=== PATIENT | female | born 2000 | race African-American/Black ===

== ENCOUNTER 2021-03-05 01:34 | Emergency (ER) | payer OTHER ==
[~2021-03-05] VITALS: Ht 160 cm; Wt 69.4 kg
[2021-03-05] MEDS ORDERED: TETANUS-DIPTH-ACEL PERTUSSIS 0.5ML SYR Tdap IM ONE (07:45)
[2021-03-05] MEDS ORDERED: METOCLOPRAMIDE HCL 5MG/ml INJ 2ml VIAL IV ONE (07:45)
[2021-03-05] MEDS ORDERED: KETOROLAC TROMETH 30 MG/ML 1ML VIAL IV ONE (07:45)
[2021-03-05 10:00] VITALS: BP 111/51
== END 2021-03-05 10:57 | disposition home or self-care (01) ==
LOC: ER 01:34
DX: S92.901A Unspecified fracture of right foot, initial encounter for closed fracture (principal); S99.911A Unspecified injury of right ankle, initial encounter; X58.XXXA Exposure to other specified factors, initial encounter; Y93.89 Activity, other specified; Y92.89 Other specified places as the place of occurrence of the external cause; Y99.8 Other external cause status
CPT/HCPCS: 29515; 73610; 73630; 90471; 90715; 96374; 96375; 99285; J1885; J2765